=== PATIENT | male | born 1980 | race Caucasian/White ===

== ENCOUNTER 2021-06-12 07:25 | Day surgery (SDC) | payer OTHER ==
[~2021-06-12] VITALS: Ht 182.9 cm; Wt 79.5 kg
[~2021-06-12 07:25] MED LIST: MIRALAX119 GM; MULTI VITAMIN1 EACH PO; OMEGA 3 1,0001 EACH PO; PROTONIX40 MG PO
--- NOTE | 2021-06-12 10:34 | NUR ---
CONNECTED WITH PT AND SPOUSE GISELE. GAVE ENCOURAGEMENT, STAFF GETTING READY TO PREP PT. WILL FOLLOW
--- NOTE | 2021-06-12 12:23 | NUR ---
06/12/21 1223 Linda Stewart 1219 PATIENT ARRIVES TO PACU UNRESPONSIVE TO PAIN. ORAL AIRWAY IN PLACE. MASK AT 6 LITERS.
[2021-06-12] MEDS ORDERED: IBUPROFEN600 MG PO (12:30)
[2021-06-12] MEDS ORDERED: OXYCODON-ACETA1 EAC2 PO (12:31)
[2021-06-12] MEDS ORDERED: ACETAMINOPHEN500 MG PO (12:31)
--- NOTE | 2021-06-12 13:45 | NUR ---
1345-PATIENT RESTING IN BED. RESP EVEN AND UNLABORED. DENIES PAIN AND NAUSEA. ABDOMINAL DRESSING WITH SMALL AMOUNT OF DRAINAGE. DRESSING AROUND TUBE IS CLEAN, DRY, AND INTACT. AT BEDSIDE. CALL LIGHT WITHIN REACH.
--- NOTE | 2021-06-12 15:13 | NUR ---
INSTRUCTED ON FLUSHING TUBE{SHE DID IT}. STATES SHES COMFORTABLE WITH DOING.
--- NOTE | 2021-06-12 15:16 | NUR ---
1500-PROVIDED DISCHARGE INSTRUCTIONS TO PATIENT AND . ALL QUESTIONS ANSWERED. 1505-WHEELCHAIR RIDE PROVIDED TO FRONT OF HOSPITAL WHERE WAS WAITING WITH THE CAR.
--- NOTE | 2021-06-14 10:56 | OR ---
[facility] [address] [place], [place] [address] Signed DATE OF OPERATION: 06/12/2021 SURGEON: Juan Carlos Sauceda MD PREOPERATIVE DIAGNOSES: Esophageal cancer and weight loss; undergoing chemoradiation, neoadjuvant therapy, anticipating resection. POSTOPERATIVE DIAGNOSES: Esophageal cancer and weight loss; undergoing chemoradiation, neoadjuvant therapy, anticipating resection. PROCEDURE: Operative placement of jejunal feeding tube with Witzel tunnel technique (14-Moldovan red rubber catheter). ANESTHESIA: 1. General endotracheal, Debra Melly, UTILITY WORKER FILM PROCESSING as well as postoperative bilateral TAP block. 2. Local anesthetic 10 mL of 0.25% Marcaine with epinephrine. INDICATION: This 40-year-old white man is a patient of DAMON Alonso. He is from [place], [place]. The patient has been diagnosed with esophageal cancer showing possible periesophageal lymphadenopathy. He has lost 50 pounds over the past several months. He has some dysphagia but not severe at this time. He is undergoing neoadjuvant chemoradiation therapy, anticipating esophageal resection with gastric pull-up reconstruction at [facility] in the future. I was contacted by Dr. Yosi Chávez radiation therapist, to place feeding jejunostomy at this time. I have reviewed with the patient and his the risk of bleeding, infection, bowel obstruction, and other unforeseen complications related to placement of a feeding jejunal tube; they understand and wished to proceed. FINDINGS: There is no evidence of ascites or carcinomatosis within the abdominal cavity. Placement of jejunal feeding tube was without complication. Several additional holes were cut into the distal portion of the red rubber 14-Moldovan catheter. A Witzel tunnel technique was used and broad application of the jejunum to the left abdominal wall was undertaken so as to avoid a point of torsion to cause obstruction. He tolerated the Electronically Signed By: JUAN CARLOS SAUCEDA MD 06/14/21 1056 PATIENT NAME: TOMASZ CARTER OPERATIVE REPORT DATE OF : 82 REPORT #: [id number] PHYSICIAN: JUAN CARLOS SAUCEDA MD PCP: YOSI CHÁVEZ REPORT IS CONFIDENTIAL AND NOT TO BE RELEASED WITHOUT AUTHORIZATION [facility] [address] [place], [place] [address] Signed procedure well. DESCRIPTION OF PROCEDURE: The patient was brought to the operating room and given a general endotracheal anesthetic. Preoperative antibiotic Ancef was given. Sequential compression device stockings were used. The patient has been undergoing daily neoadjuvant chemoradiation therapy. After satisfactory anesthesia, a small supraumbilical incision was made. Dissection carried through the subcutaneous tissue with electrocautery. The midline fascia was incised and the abdomen entered. There was no evidence of ascites or carcinomatosis. The transverse colon was easily identified. Under direct visualization, a segment of small bowel in the left upper quadrant was gently grasped with a [place] clamp and delivered and run proximally identifying the ligament of Treitz. The bowel was then delivered out of the abdomen and approximately at 20 cm from the ligament of Treitz, an area designated for appropriate application of the feeding tube. A pursestring suture of 3-0 silk was placed on the antimesenteric aspect of the jejunum. Using hemostat and limited electrocautery, the serosal defect was created as was mucosal defect and insinuation of hemostat to the bowel lumen undertaken. A previously inspected and modified 14-Moldovan red rubber catheter was inserted into the enterotomy and the pursestring suture secured. The tube had been modified by transecting its tip and applying approximately four additional side holes to it. It was passed well down into the small bowel. A Witzel tunnel serosal reapplication was undertaken with 3-0 silk suture. The left upper quadrant incision was made and the tonsil clamp passed through the abdominal wall grasping the jejunal tube and delivering to the outside of the abdomen. The jejunal segment was then secured at the exit site of the tube with 3-0 silk suture and the Witzel tunnel portion applied to the peritoneal surface of the abdominal wall approximately 4 cm in length to avoid torsion and obstruction. The red rubber catheter was then secured to the skin with a 2-0 nylon suture. Using a catheter tip syringe, the tube was irrigated and found to flow without problem. It was capped. Attention was then turned towards closure. The midline fascia was reapproximated with running 0 PDS suture. Jamie layer was reapproximated with a few interrupted 3-0 Vicryl and skin closed with running subcuticular 3-0 Vicryl. Steri-Strips were applied as was an Acticoat dressing. The red rubber catheter was secured to the abdominal wall with two small OpSite dressings and gauze applied to the exit site of the catheter. The mortgage processing manager then performed bilateral TAP block for postoperative analgesic benefit. The patient is anticipated to be extubated in the operating room and transferred to the recovery room in good condition having suffered no known complication. Electronically Signed By: JUAN CARLOS SAUCEDA MD 06/14/21 1056 PATIENT NAME: TOMASZ CARTER OPERATIVE REPORT DATE OF : 82 REPORT #: [id number] PHYSICIAN: JUAN CARLOS SAUCEDA MD PCP: YOSI CHÁVEZ REPORT IS CONFIDENTIAL AND NOT TO BE RELEASED WITHOUT AUTHORIZATION [address] [address] Signed MD BERNA Tripathi/MODL /[id number] cc: DAMON Alonso MD, PH.D. Copies: YOSI CHÁVEZ ~ Electronically Signed By: JUAN CARLOS SAUCEDA MD 06/14/21 1056 PATIENT NAME: TOMASZ CARTER OPERATIVE REPORT DATE OF : 82 REPORT #: [id number] PHYSICIAN: JUAN CARLOS SAUCEDA MD PCP: YOSI CHÁVEZ REPORT IS CONFIDENTIAL AND NOT TO BE RELEASED WITHOUT AUTHORIZATION
== END 2021-06-12 17:00 | disposition home or self-care (01) ==
LOC: DS 07:25
PROVIDERS: ATTEND Surgery
PROC: 0DHA0UZ Insertion of Feeding Device into Jejunum, Open Approach (ICD-10-PCS; principal; 2021-06-12 08:40)
DX: C15.9 Malignant neoplasm of esophagus, unspecified (principal); R63.4 Abnormal weight loss; Z68.24 Body mass index [BMI] 24.0-24.9, adult
CPT/HCPCS: J0131; J0330; J0690; J1100; J1644; J1885; J2001; J2250; J2405; J2704; J2795; J7121